=== PATIENT | male | born 1955 | race Caucasian/White ===

== ENCOUNTER → 2016-08-31 | Outpatient (CLI) | payer OTHER ==
[~2016-08-31] MED LIST: ATOR20TA54 PO; CELE200C PO; CETI10CA PO; HYDR-3702 PO; OMEP20TA PO; POTA10TA10 PO; [UNRECOGNIZED DRUG - OTHER]; celebrex; lortab; mucinex; zyrtec
--- NOTE | 2016-08-31 13:29 | Diagnostic Imaging Report ---
INDICATION: Dysphasia [employer] radiograph of the chest reveals air trapping in the upper lobes, bilaterally. Lungs otherwise clear. There is no evidence of mediastinal widening. Patient ingested effervescent crystals followed by liquid barium under fluoroscopic observation. Swallowing mechanism is unremarkable for the majority of swallows. On one occasion, however there was penetration with contrast reaching the upper trachea without associated cough reflex. Esophagus is of normal caliber with mild sliding-type hiatal hernia and mild gastroesophageal reflux demonstrated. IMPRESSION: Single episode of silent aspiration with small amount of contrast reaching the upper trachea without cough reflex. There is mild hiatal hernia and gastroesophageal reflux without other abnormality identified. Dictated by: Dictated on workstation # [id number]
== END ==
LOC: RAD 09:18
PROVIDERS: ATTEND Specialist
DX: R13.13 Dysphagia, pharyngeal phase (principal)
CPT/HCPCS: 74220

== ENCOUNTER → 2016-09-08 | Outpatient (CLI) | payer OTHER ==
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
== END ==
LOC: RAD 15:52
PROVIDERS: ATTEND Physician Assistant
DX: J32.0 Chronic maxillary sinusitis (principal)
CPT/HCPCS: 70486